=== PATIENT | female | born 2000 | race Two or more races ===

== ENCOUNTER 2022-07-17 21:59 | Emergency (ER) | payer MEDICAID, OTHER ==
[~2022-07-17] VITALS: Ht 167.6 cm; Wt 70.0 kg
[2022-07-17 22:33] VITALS: BP 131/89
[2022-07-18] MEDS: diphenhdrAMINE HCL 50 MG/1 ML VL IM ONE ×2 (02:10→02:20)
[2022-07-18] MEDS ORDERED: KETOROLAC TROMETH 30 MG/ML 1ML VIAL IM ONE (02:15)
[2022-07-18] MEDS ORDERED: DexAMETHasone SOD PHOS 10MG/1ML VIAL INJ IM ONE (02:15)
[2022-07-18] MEDS ORDERED: diphenhdrAMINE HCL 50 MG/1 ML VL IM ONE (02:15)
== END 2022-07-18 02:48 | disposition home or self-care (01) ==
LOC: ER 21:59
DX: L23.89 Allergic contact dermatitis due to other agents (principal); T50.905A Adverse effect of unspecified drugs, medicaments and biological substances, initial encounter; Y92.9 Unspecified place or not applicable
CPT/HCPCS: 96372; 99284; J1100; J1200; J1885